=== PATIENT | female | born 1960 | race Caucasian/White ===

== ENCOUNTER 2016-11-23 08:19 | Day surgery (SDC) | payer OTHER ==
[2016-11-23] MEDS ORDERED: KETOROLAC TROMETHAMINE 30 MG/ML SOL ONE (08:33)
[2016-11-23 09:27] VITALS: TEMP 97.4
[2016-11-23 09:34] VITALS: O2SAT 99
[2016-11-23 13:03] VITALS: BP 113/63; PULSE 60; RESP 20
== END 2016-11-23 10:14 | disposition home or self-care (01) ==
LOC: SURG 08:19
PROVIDERS: ATTEND Surgery
DX: Z12.11 Encounter for screening for malignant neoplasm of colon (principal)
CPT/HCPCS: 45378; J1885